=== PATIENT | male | born 1960 | race Two or more races ===

== ENCOUNTER 2018-12-17 06:00 | Day surgery (SDC) | payer OTHER ==
[~2018-12-17 06:00] MED LIST: VITAMIN E400 UNI6
[2018-12-17] MEDS ORDERED: COLACE100 MG PO (10:50)
[2018-12-17] MEDS ORDERED: PERCOCET 5-3251 EACH PO (10:50)
== END 2018-12-17 16:25 | disposition home or self-care (01) ==
LOC: CIR.AMB 06:00
DX: K60.3 Anal fistula (principal); K64.4 Residual hemorrhoidal skin tags; K61.39 Other ischiorectal abscess